=== PATIENT | female | born 1955 | race Caucasian/White ===

== ENCOUNTER 2024-12-06 06:31 | Day surgery (SDC) | payer OTHER, SELFPAY | END 2024-12-06 15:28 | disposition home or self-care (01) | LOC: GI 06:31 | PROVIDERS: ATTENDING PHYSICIAN Internal Medicine Gastroenterology | DX: Z12.11 Encounter for screening for malignant neoplasm of colon (principal); K51.00 Ulcerative (chronic) pancolitis without complications; K63.5 Polyp of colon; K64.0 First degree hemorrhoids; K62.89 Other specified diseases of anus and rectum; K44.9 Diaphragmatic hernia without obstruction or gangrene; K31.89 Other diseases of stomach and duodenum; Z86.0100 Personal history of colon polyps, unspecified; Z98.84 Bariatric surgery status | CPT/HCPCS: 45385; 45380; 43239; 88305; 88342 ==